=== PATIENT | male | born 1965 | race Caucasian/White ===

== ENCOUNTER 2017-11-16 09:36 | Observation (INO) | payer SELFPAY ==
[2017-11-16] MEDS ORDERED: NA CHLORIDE 0.9% 1,000 ML ONE ×2 (10:06→15:20)
[2017-11-16 10:33] LABS: Absolute Lymphocytes (CBC) 0.5 K/uL (0.7-4.9); Absolute Monocytes 0.9 K/uL (0.1-1.3); Absolute Neutrophil 10.2 K/uL (1.8-8.0); Basophils % 0.1 % (0-1.3); Eosinophils % 0.2 % (0-4.4); Hematocrit 38.6 % (39.6-49.0); MCH 30.4 pg (27.0-35.0); MCV 91.7 fL (80-100); MPV 9.1 fL (7.6-11.3); Monocytes % 7.6 % (3.3-12.3); RBC Red Blood Cell Count 4.21 M/uL (4.33-5.43)
[2017-11-16 10:51] LABS: Potassium 3.7 mEq/L (3.6-5.0)
[2017-11-16 10:59] LABS: Albumin 3.8 g/dL (3.2-5.5); Bilirubin Total 1.1 mg/dL (0.3-1.2); Protein, Total 6.6 g/dL (6.0-8.3)
[2017-11-16 11:01] LABS: Blood Morphology Comment NOT SEEN (NOT SEEN); Platelet Estimate ADEQ; Urine White Blood Cell Casts OK
[2017-11-16 11:04] LABS: Protime INR 1.22
--- NOTE | 2017-11-16 11:36 | RAD REPORT ---
EXAM DESCRIPTION: RAD - Chest Single View - 11/16/2017 10:59 am CLINICAL HISTORY: Syncope, possible heat exhaustion COMPARISON: None. TECHNIQUE: AP portable chest image was obtained 1048 hours . FINDINGS: Lungs are clear. Heart and vasculature are normal. No measurable pleural effusion and no p neumothorax. No gross bony abnormality seen. No acute aortic findings suspected. IMPRESSION: No acute cardiopulmonary process.
--- NOTE | 2017-11-16 12:19 | RAD REPORT ---
EXAM DESCRIPTION: CT - Abdomen Pelvis W Contrast - 11/16/2017 11:46 am CLINICAL HISTORY: Headache, hypertension, tachycardia, possible pheochromocytoma, abnormal liver fun ction COMPARISON: None. TECHNIQUE: Biphasic, helical CT imaging of the abdomen and pelvis was performed following 100 ml non -ionic IV contrast. Oral contrast was given. All CT scans are performed using dose optimization technique as appropriate and may include automated exposure control or mA/KV adjustment according to patient size. FINDINGS: Numerous small noncalcified pulmonary nodules present in the lung bases. No pneumothorax, pleural effusion or pleural based mass. No pericardial thickening or effusion. Liver size is normal. There are multiple 12 mm or less oval and round low-density masses. These are p robably cysts but not fully characterized. No splenomegaly or focal splenic finding. No acute pancrea tic process. Gallbladder and biliary tree are also without suspicious finding. Symmetric renal function is seen with no hydronephrosis or suspicious renal mass. No pyelonephritis o r acute renal parenchymal process. No obstructing calculi. No urinary bladder abnormality. Prostate g land and seminal vesicles within normal range. Both adrenal glands are well visualized. No mass lesions seen. No gastric dilatation or wall thickening. No dilated large or small bowel loops. Moderate stool volum e present in the normal size colon. No free air, free fluid or inflammatory stranding. No hernia, mass or bulky lymphadenopathy. No suspicious bony findings. IMPRESSION: No adrenal abnormalities. No lymphadenopathy. No finding for pheochromocytoma. Multiple 12 mm or less round low-density masses are present in the liver. These are probably cysts bu t no comparison available to establish stability. Cystic metastatic disease would be unlikely without a supporting history. Patient has several small pulmonary nodules. Fall chest is not characterized on this study. Noncalci fied granulomas and metastatic disease can have this appearance.
[2017-11-16 14:28] LABS: Urine Blood TRACE (NEG); Urine Glucose NEGATIVE (NEG); Urine Protein TRACE (NEG); Urine Specific Gravity 1.015 (1.005-1.030); Urine pH 6.5 (5.0-7.0)
[2017-11-16] MEDS ORDERED: ACETAMINOPHEN 325 MG TABLET ONE (15:34)
--- NOTE | 2017-11-16 18:54 | ER ---
Nurse's Notes [facility] Name: Jonathon Croft Age: 52 yrs Sex: Male : 1965 Arrival Date: 11/16/2017 Time: 09:40 Bed 8 Private MD: None, None Diagnosis: Syncope. Presentation: 11/16 09:54 Presenting complaint: Patient states: got over heated while working outside on iw and Friday, he has been feeling weak since then, this morning he had an episode of vomiting, was kneeling on ground and thinks he may have passed out, states he woke up on the floor. Transition of care: patient was not received from another setting of care. 09:54 Method Of Arrival: Wheelchair iw 09:56 Onset of symptoms was November 16, 2017. Risk Assessment: Do you want to hurt yourself or iw someone else? Patient reports no desire to harm self or others. Initial Sepsis Screen: Does the patient meet any 2 criteria? No. Patient's initial sepsis screen is negative. Does the patient have a suspected source of infection? No. Patient's initial sepsis screen is negative. Care prior to arrival: None. 09:56 Acuity: SANDRA 3 iw Historical: - Allergies: 09:58 NKA; iw - PMHx: 09:58 Hyperlipidemia; iw - Immunization history:: Adult Immunizations unknown. - Ebola Screening: : Patient negative for fever greater than or equal to 101.5 degrees Fahrenheit, and additional compatible Ebola Virus Disease symptoms Patient denies exposure to infectious person Patient denies travel to an Ebola-affected area in the 21 days before illness onset No symptoms or risks identified at this time. - Social history:: Smoking status: Patient/guardian denies using tobacco, but has a distant history of tobacco abuse. Screenin:14 Abuse screen: Denies threats or abuse. Denies injuries from another. Nutritional jl7 screening: No deficits noted. Tuberculosis screening: No symptoms or risk factors identified. Fall Risk IV access (20 points). Total Hendrickson Fall Scale indicates No Risk (0-24 pts). Assessment: 09:55 General: Appears in no apparent distress. uncomfortable, Behavior is calm, cooperative, jl7 appropriate for age. Pain: Complains of pain in headache, behind the eyes Quality of pain is described as pressure, Pain began 2-3 days ago. Is continuous. Neuro: Level of Consciousness is awake, alert, obeys commands, Oriented to person, place, time, situation. Cardiovascular: Heart tones S1 S2 present Patient's skin is warm and dry. Respiratory: Airway is patent Respiratory effort is even, unlabored, Respiratory pattern is regular, symmetrical, Breath sounds are clear bilaterally. Denies shortness of breath. GI: Reports nausea, vomiting, since this morning. : No signs and/or symptoms were reported regarding the genitourinary system. EENT: No signs and/or symptoms were reported regarding the EENT system. Derm: Skin is pink, warm \T\ dry. Musculoskeletal: No signs and/or symptoms reported regarding the musculoskeletal system. 11:00 Reassessment: No changes from previously documented assessment. Patient and/or family jl7 updated on plan of care and expected duration. Pain level reassessed. Patient is alert, oriented x 3, equal unlabored respirations, skin warm/dry/pink. 12:00 Reassessment: Patient and/or family updated on plan of care and expected duration. Pain jl7 level reassessed. Patient is alert, oriented x 3, equal unlabored respirations, skin warm/dry/pink. 13:00 Reassessment: No changes from previously documented assessment. Patient and/or family jl7 updated on plan of care and expected duration. Pain level reassessed. Patient is alert, oriented x 3, equal unlabored respirations, skin warm/dry/pink. 14:00 Reassessment: Patient and/or family updated on plan of care and expected duration. Pain jl7 level reassessed. Patient is alert, oriented x 3, equal unlabored respirations, skin warm/dry/pink. 15:00 Reassessment: Pt request something for his ODELL, provider notified, see MAR for orders. jl7 16:00 Reassessment: Pt laying in bed with eyes closed, respirations even and unlabored, no jl7 signs of distress noted at this time. 17:00 Reassessment: Reassessment: Pt reports continued headache, the medication did not help jl7 at all. Provider notified, no new orders received at this time. 17:40 Reassessment: Ambulated pt approximately 150 ft, steady gate, Pulse and oxygen remain jl7 stable. 18:00 Reassessment: Sujata Adrian NP notified of continued ODELL. DUSTY Adrian to bedside. jl7 18:36 Reassessment: pt to CT. jl7 20:09 Reassessment: Patient appears in no apparent distress at this time. pt lying flat s/p ak1 LP. 21:15 Reassessment: pt ambulated to restroom with hospitalist. ak1 Vital Signs: 09:57 BP 117 / 77; Pulse 77; Resp 16 S; Temp 98.2; Pulse Ox 97% on R/A; iw 10:11 BP 119 / 76 Supine; Pulse 73; Pulse Ox 97% ; jl7 10:13 BP 118 / 81 Sitting; Pulse 79; Pulse Ox 98% ; jl7 10:14 BP 108 / 74 Standing; Pulse 81; Resp 16; Pulse Ox 98% ; jl7 11:00 BP 132 / 84; Pulse 80; Resp 18; Pulse Ox 96% ; ae1 12:24 BP 126 / 71; Pulse 87; Resp 16; Pulse Ox 96% ; jl7 13:07 BP 109 / 71; Pulse 80; Resp 29; Pulse Ox 95% on R/A; ae1 14:41 BP 117 / 74; Pulse 74; Resp 18; Pulse Ox 96% on R/A; ae1 15:39 BP 120 / 72; Pulse 83; Resp 18; Pulse Ox 98% ; jl7 16:30 BP 120 / 68; Pulse 77; Resp 18; Pulse Ox 96% ; jl7 17:00 BP 111 / 66; Pulse 77; Resp 14; Pulse Ox 95% ; jl7 17:30 BP 98 / 65; Pulse 72; Resp 16; Pulse Ox 94% ; jl7 17:43 BP 104 / 64; Pulse 70; Resp 16; Pulse Ox 97% ; jl7 18:00 BP 109 / 69; Pulse 72; Resp 14; Temp 99.5; Pulse Ox 97% ; jl7 19:05 BP 111 / 75; Pulse 72; Resp 16; Temp 100.2; Pulse Ox 96% ; jl7 20:11 BP 111 / 74; Pulse 76; Resp 16; Temp 98.8(O); Pulse Ox 96% on R/A; ak1 20:37 BP 108 / 64; Pulse 69; Resp 16; Temp 98.8(O); Pulse Ox 96% on R/A; ak1 ED Course: 09:40 Patient arrived in ED. mr 09:40 None, None is Private Physician. mr 09:49 Dominick Omer MD is Attending Physician. ps1 09:56 Triage completed. iw 09:57 Edward Curtis, GITA is Primary Nurse. jl7 10:14 Initial lab(s) drawn, by ED staff, sent to lab. jl7 10:17 Inserted saline lock: 18 gauge in right forearm, using aseptic technique. Blood ae1 collected. 10:20 Attending Physician role handed off by Dominick Omer MD ma2 10:20 Yina Vallejo MD is Attending Physician. ma2 10:23 Dominick Omer MD is Attending Physician. ma2 10:27 EKG done, by ED staff, reviewed by Dominick Omer MD. jl7 10:27 Patient has correct armband on for positive identification. Placed in gown. Bed in low jl7 position. Call light in reach. bus monitor on. Pulse ox on. NIBP on. 10:27 Arm band placed on right wrist. jl7 10:59 XRAY Chest (1 view) In Process Unspecified. EDMS 11:45 CT completed. Patient tolerated procedure well. Patient moved back from CT. cw1 11:46 CT Abd/Pelvis - W/Contrast In Process Unspecified. EDMS 15:30 Repeat lab(s) drawn. by me, sent to lab. jl7 18:[address] via stretcher. cw1 18:36 Consent for a lumbar puncture explained by staff, explained by physician, signed by jl7 patient. 18:39 Ct Stroke Brain Wo Cont In Process Unspecified. EDMS 18:53 Yina Oviedo MD is Hospitalizing Provider. ps1 19:00 Assist provider with lumbar puncture: Set up LP tray. Performed by Sujata Adrian jl7 RECORD MAKER-C CSF is clear. Puncture site dressed with band aid, Procedure was successful. Patient tolerated well. 19:17 Misc. Lab Test Sent. ak1 20:11 Patient admitted, IV remains in place. ak1 Administered Medications: 10:08 Drug: NS 0.9% 1000 ml Route: IV; Rate: 1 bolus; Site: right forearm; ae1 21:36 Follow up: IV Status: Completed infusion ak1 15:30 Drug: NS 0.9% 1000 ml Route: IV; Rate: 1 bolus; Site: right forearm; jl7 18:36 Follow up: IV Status: Completed infusion jl7 15:36 Drug: Tylenol 650 mg Route: PO; jl7 17:00 Follow up: Response: No adverse reaction; Pain is unchanged, physician notified jl7 19:16 Drug: Tylenol 1000 mg Route: PO; ak1 20:39 Follow up: Response: No adverse reaction ak1 19:51 Drug: NS 0.9% 1000 ml Route: IV; Rate: 1 bolus; Site: right antecubital; ea 21:36 Follow up: IV Status: Completed infusion ak1 Outcome: 18:53 Decision to Hospitalize by Provider. ps1 20:10 Condition: stable ak1 20:10 Instructed on the need for admit. 21:45 Admitted to Tele accompanied by tech, via wheelchair, room 205, with chart, Report ak1 called to Rahat PELAYO 21:54 Patient left the ED. ak1 Signatures: Dispatcher [employer] EDMS Nikki Duarte Irene, RN RN iw Woodley, Crystal cw1 Altagracia Stubbs RN RN ak1 Steven Vick RN RN ae1 Edward Curtis RN RN jl7 Dede Zhang RN RN ea Singer, Phillip, MD MD ps1 Yina Vallejo MD MD ma2
--- NOTE | 2017-11-16 18:54 | EDPHYS ---
Physician Documentation [facility] Name: Jonathon Croft Age: 52 yrs Sex: Male : 1965 Arrival Date: 11/16/2017 Time: 09:40 Bed 8 Private MD: None, None ED Physician Dominick Omer HPI: 11/16 10:02 This 52 yrs old Male presents to ER via Wheelchair with complaints of Passed ps1 Out Prior To Arrival, Weakness, Dizziness, Headache. 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 He thinks that he has been dehydrated and symptoms of heat injury with headache, sweating, chills. This morning he went to the bathroom and was nauseous and felt lightheaded while vomiting. He rolled over and laid on the ground and he felt like he may have had a syncopal event. Additionally he states that over the last couple of days he has had intermittent chest discomfort. Lasting an unknown amount of time. Described as chest pressure. 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 . Historical: - Allergies: 09:58 NKA; iw - PMHx: :58 Hyperlipidemia; iw - Immunization history:: Adult Immunizations unknown. - Ebola Screening: : Patient negative for fever greater than or equal to 101.5 degrees Fahrenheit, and additional compatible Ebola Virus Disease symptoms Patient denies exposure to infectious person Patient denies travel to an Ebola-affected area in the 21 days before illness onset No symptoms or risks identified at this time. - Social history:: Smoking status: Patient/guardian denies using tobacco, but has a distant history of tobacco abuse. ROS: 10:02 Eyes: Negative for injury, pain, redness, and discharge, Neck: Negative for injury, ps1 pain, and swelling. 10:02 Respiratory: Negative for shortness of breath, cough, wheezing, and pleuritic chest pain. 10:02 Back: Negative for injury and pain. 10:02 MS/Extremity: Negative for injury and deformity, Skin: Negative for injury, rash, and discoloration. 10:02 Constitutional: Positive for chills, fatigue, fever. 10:02 Cardiovascular: Positive for chest pain. 10:02 Abdomen/GI: Positive for nausea and vomiting. 10:02 : Positive for dark urine. 10:02 Neuro: Positive for near syncope. Exam: 10:02 Constitutional: This is a well developed, well nourished patient who is awake, alert, ps1 and in no acute distress. Head/Face: Normocephalic, atraumatic. Eyes: Pupils equal round and reactive to light, extra-ocular motions intact. Lids and lashes normal. Conjunctiva and sclera are non-icteric and not injected. Neck: Trachea midline, no thyromegaly or masses palpated, and no cervical lymphadenopathy. Supple, full range of motion without nuchal rigidity, or vertebral point tenderness. No Meningismus. Chest/axilla: Normal chest wall appearance and motion. Nontender with no deformity. No lesions are appreciated. Cardiovascular: Regular rate and rhythm. No gallops, murmurs, or rubs. Normal PMI, no JVD. No pulse deficits. Respiratory: Lungs have equal breath sounds bilaterally, clear to auscultation and percussion. No rales, rhonchi or wheezes noted. No increased work of breathing, no retractions or nasal flaring. Abdomen/GI: Soft, non-tender, with normal bowel sounds. No distension or tympany. No guarding or rebound. No evidence of tenderness throughout. Skin: Warm, dry with normal turgor. Normal color with no rashes, no lesions, and no evidence of cellulitis. MS/ Extremity: Pulses equal, no cyanosis. Neurovascular intact. Full, normal range of motion. Neuro: Awake and alert, GCS 15, oriented to person, place, time, and situation. Cranial nerves II-XII grossly intact. Sensory grossly intact. Vital Signs: 09:57 BP 117 / 77; Pulse 77; Resp 16 S; Temp 98.2; Pulse Ox 97% on R/A; iw 10:11 BP 119 / 76 Supine; Pulse 73; Pulse Ox 97% ; jl7 10:13 BP 118 / 81 Sitting; Pulse 79; Pulse Ox 98% ; jl7 10:14 BP 108 / 74 Standing; Pulse 81; Resp 16; Pulse Ox 98% ; jl7 11:00 BP 132 / 84; Pulse 80; Resp 18; Pulse Ox 96% ; ae1 12:24 BP 126 / 71; Pulse 87; Resp 16; Pulse Ox 96% ; jl7 13:07 BP 109 / 71; Pulse 80; Resp 29; Pulse Ox 95% on R/A; ae1 14:41 BP 117 / 74; Pulse 74; Resp 18; Pulse Ox 96% on R/A; ae1 15:39 BP 120 / 72; Pulse 83; Resp 18; Pulse Ox 98% ; jl7 16:30 BP 120 / 68; Pulse 77; Resp 18; Pulse Ox 96% ; jl7 17:00 BP 111 / 66; Pulse 77; Resp 14; Pulse Ox 95% ; jl7 17:30 BP 98 / 65; Pulse 72; Resp 16; Pulse Ox 94% ; jl7 17:43 BP 104 / 64; Pulse 70; Resp 16; Pulse Ox 97% ; jl7 18:00 BP 109 / 69; Pulse 72; Resp 14; Temp 99.5; Pulse Ox 97% ; jl7 19:05 BP 111 / 75; Pulse 72; Resp 16; Temp 100.2; Pulse Ox 96% ; jl7 20:11 BP 111 / 74; Pulse 76; Resp 16; Temp 98.8(O); Pulse Ox 96% on R/A; ak1 20:37 BP 108 / 64; Pulse 69; Resp 16; Temp 98.8(O); Pulse Ox 96% on R/A; ak1 MDM: 10:10 Patient medically screened. ps1 18:48 Data reviewed: vital signs, nurses notes, lab test result(s), EKG, radiologic studies, ps1 CT scan, plain films. ED course: patient with multiple episodes of vomiting and lightheadedness. Plan for admission for persistent symptoms after rehydration. Patient has had contrast today and inpatient workup consideration for LP and CTA for vertebral artery dysfunction. . 11/16 10:02 Order name: BNP; Complete Time: 11: ps1 11/16 10:02 Order name: CBC with Diff; Complete Time: 11: ps1 11/16 10:02 Order name: CPK; Complete Time: 11: ps1 11/16 10:02 Order name: Magnesium; Complete Time: 11: ps1 11/16 10:02 Order name: PT-INR; Complete Time: 11: ps1 11/16 10:02 Order name: Ptt, Activated; Complete Time: 11: ps1 11/16 10:02 Order name: Troponin (emerg Dept Use Only); Complete Time: 11: ps1 11/16 10:02 Order name: CMP; Complete Time: 11: ps1 11/16 10:02 Order name: Lipid Profile; Complete Time: 11:00 ps1 11/16 10:39 Order name: CBC Smear Scan; Complete Time: 11:02 EDUT 11/16 13:14 Order name: Urine Dipstick--Ancillary (enter results); Complete Time: 14:29 bd 11/16 15:18 Order name: Troponin (emerg Dept Use Only); Complete Time: 16:08 ps1 11/16 17:50 Order name: Flu; Complete Time: 18:16 em 11/16 19:10 Order name: CSF Bacterial Antigens (tube 1); Complete Time: 20:40 snw 11/16 10:02 Order name: XRAY Chest (1 view); Complete Time: 11:37 ps1 11/16 11:12 Order name: CT Abd/Pelvis - W/Contrast; Complete Time: 12:31 ps1 11/16 18:28 Order name: Ct Stroke Brain Wo Cont; Complete Time: 19:04 EDUT 11/16 19:10 Order name: Csf Culture [facility] 11/16 19:10 Order name: Fluid Cell Count,Body; Complete Time: 20:58 snw 11/16 19:10 Order name: Spinal Fluid Profile; Complete Time: 20:58 snw 11/16 19:10 Order name: Misc. Lab Test; Complete Time: 20:40 w 11/16 21:09 Order name: CBC with Automated Diff [facility] 11/16 21:09 Order name: CBC with Automated Diff [facility] 11/16 21:09 Order name: Comprehensive Metabolic Panel [facility] 11/16 21:09 Order name: Comprehensive Metabolic Panel [facility] 11/16 21:09 Order name: Cortisol [facility] 11/16 21:09 Order name: T4 Free [facility] 11/16 21:09 Order name: Thyroid Stimulating Hormone [facility] 11/16 10:02 Order name: EKG; Complete Time: 10:03 [facility] 11/16 10:02 Order name: Cardiac monitoring; Complete Time: 10:14 [facility] 11/16 10:02 Order name: EKG - Nurse/Tech; Complete Time: 10:14 [facility] 11/16 10:02 Order name: IV Saline Lock; Complete Time: 10:17 ps1 11/16 10:02 Order name: Labs collected and sent; Complete Time: 10:26 [facility] 11/16 10:02 Order name: O2 Per Protocol; Complete Time: 10:14 11/16 10:02 Order name: O2 Sat Monitoring; Complete Time: 10:14 11/16 10:02 Order name: Urine Dipstick-Ancillary (obtain specimen); Complete Time: 13:18 [facility] 11/16 10:02 Order name: Orthostatics; Complete Time: 10:14 [facility] 11/16 10:02 Order name: EKG - Nurse/Tech; Complete Time: 10:14 [facility] 11/16 16:15 Order name: Diet Regular; Complete Time: 16:15 11/16 18:21 Order name: LP Setup; Complete Time: 18:35 11/16 18:21 Order name: LP Consents; Complete Time: 18:35 11/16 19:10 Order name: Lumbar Puncture Consent; Complete Time: 19:17 [facility] 11/16 19:10 Order name: Lumbar Puncture Setup; Complete Time: 19:17 [facility] 11/16 21:09 Order name: CONS Pharmacy Consult EDMS Administered Medications: 10:08 Drug: NS 0.9% 1000 ml Route: IV; Rate: 1 bolus; Site: right forearm; ae1 21:36 Follow up: IV Status: Completed infusion ak1 15:30 Drug: NS 0.9% 1000 ml Route: IV; Rate: 1 bolus; Site: right forearm; jl7 18:36 Follow up: IV Status: Completed infusion jl7 15:36 Drug: Tylenol 650 mg Route: PO; jl7 17:00 Follow up: Response: No adverse reaction; Pain is unchanged, physician notified jl7 19:16 Drug: Tylenol 1000 mg Route: PO; ak1 20:39 Follow up: Response: No adverse reaction ak1 19:51 Drug: NS 0.9% 1000 ml Route: IV; Rate: 1 bolus; Site: right antecubital; ea 21:36 Follow up: IV Status: Completed infusion ak1 Disposition: 11/16/17 18:53 Hospitalization ordered by Yina Oviedo for Observation. Preliminary diagnosis is Syncope. . - Bed requested for Telemetry/MedSurg (observation). - Status is Observation. ak1 - Condition is Fair. - Problem is new. - Symptoms are unchanged. UTI on Admission? 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 He thinks that he has been dehydrated and symptoms of heat injury with headache, sweating, chills. This morning he went to the bathroom and was nauseous and felt lightheaded while vomiting. He rolled over and laid on the ground and he felt like he may have had a syncopal event. Additionally he states that over the last couple of days he has had intermittent chest discomfort. Lasting an unknown amount of time. Described as chest pressure. . ps1 19:35 18:53 Hospitalization Ordered by Yina Oviedo MD for Observation. Preliminary dw diagnosis is Syncope. . Bed requested for Telemetry/MedSurg (observation). Status is Observation. Condition is Fair. Problem is new. Symptoms are unchanged. UTI on Admission? No. ps1 21:54 19:35 11/16/2017 18:53 Hospitalization Ordered by Yina Oviedo MD for Observation. ak1 Preliminary diagnosis is Syncope. . Bed requested for Telemetry/MedSurg (observation). Status is Observation. Condition is Fair. Problem is new. Symptoms are unchanged. UTI on Admission? No. dw
--- NOTE | 2017-11-16 18:58 | RAD REPORT ---
EXAM DESCRIPTION: CT - Ct Stroke Brain Wo Cont - 11/16/2017 6:39 pm CLINICAL HISTORY: Altered mental status, heat stroke symptoms CLINICAL HISTORY: None. TECHNIQUE: Axial 5 millimeter thick images of the head were obtained without IV contrast. All CT scans are performed using dose optimization technique as appropriate and may include automated exposure control or mA/KV adjustment according to patient size. FINDINGS: No intracranial hemorrhage, mass, or cerebral edema. No acute infarction identifiable. No extra-axial fluid collections. Godoy matter-white matter differentiation is preserved. Visualized portions of the mastoid air cells, paranasal sinuses, and orbits are unremarkable. IMPRESSION: No CT evidence of acute intracranial process.
[2017-11-16] MEDS ORDERED: ACETAMINOPHEN 500 MG TAB ONE (19:12)
[2017-11-16 19:40] LABS: CSF Glucose 62 mg/dl (40-70)
--- NOTE | 2017-11-16 19:42 | P.HP ---
Certification for Inpatient Patient admitted to: Observation With expected LOS: <2 Midnights Patient will require the following post-hospital care: None Practitioner: I am a practitioner with admitting privileges, knowledge of patient current condition, hospital course, and medical plan of care. Services: Services provided to patient in accordance with Admission requirements found in Title 42 Section 412.3 of the Code of Federal Regulations Patient History Date of Service: 11/16/17 Primary Care Provider: No PCP Reason for admission: Generalized weakness, syncope History of Present Illness: Pt arrived to the ED today after being unable to complete his ADLs. Pt was worked up for syncope in the ED. Troponin negative x 2. NSR on EKG. Pt denies chest pain but does complain of "hot flashes", inability to tolerate heated environments, extreme fatigue, headache behind his eyes and pain at the base of the neck. Upon my exam in the ED pt states that he got overheated on in an unairconditioned work space. He felt supremely fatigued, sat on his bottom to reset, and awoke on his back on the floor. Pt cannot say if he was sweating before or when he awoke. Pt states he then went home. Friday pt attempted to finish his work and was unable. Went home and "crawled in the door", pt states he awoke some time later on his back and had been incontinent of urine. Went to the shower and sat under the spray and lay on the cold tile. Pt states yesterday he had similar s/s x 2 except this time he vomited x 1. CT of head ordered and reported as negative. LP performed in right lateral position per sterile technique. Pt tolerated well. CSF with initially brisk flow and then nothing. Tube one slightly xanthochromic. Spinal needle manipulated slightly and fluid resumed with tinge of blood. 4 tubes collected and walked to lab Allergies No Known Drug Allergies Allergy (Verified 07/03/14 11:20) Unknown Home medications list reviewed: Yes Home Medications: Amox/Clavulanate [Augmentin 875-125 Tab] 1 each PO BID #20 tab 07/04/14 - Past Medical/Surgical History Has patient received pneumonia vaccine in the past: No Diabetic: No Past Medical History: Patient denies medical history Past Surgical History: Patient denies surgical history - Family History Mother -: Heart disease, Cancer - Social History Smoking Status: Former smoker Alcohol use: No CD- Drugs: No Caffeine use: Yes Place of Residence: Home Review of Systems General: Weakness, Malaise Eyes: Unremarkable ENT: Unremarkable Respiratory: Unremarkable Cardiovascular: Light Headedness Gastrointestinal: Nausea, Vomiting Genitourinary: Unremarkable Musculoskeletal: As per HPI Integumentary: Unremarkable Neurological: Weakness Lymphatics: Unremarkable Physical Examination - Vital Signs Temperature: 100.2 F Blood Pressure: 111/75 Pulse: 72 Respirations: 16 Pulse Ox (%): 96 - Physical Exam General: Alert HEENT: Atraumatic Neck: Supple, Other (posterior neck discomfort) Respiratory: Clear to auscultation bilaterally Cardiovascular: Normal pulses, Regular rate/rhythm, Normal S1 S2 Capillary refill: <2 Seconds Gastrointestinal: Normal bowel sounds Musculoskeletal: No clubbing, No swelling Integumentary: No rashes Neurological: Normal gait, Normal speech, Normal reflexes 2+, Normal affect Lymphatics: No axilla or inguinal lymphadenopathy External genitalia: Deferred Rectal: Deferred - Studies Laboratory Data (last 24 hrs) 11/16/17 10:09: PT 14.4 H, INR 1.22, APTT 26.5 11/16/17 10:09: Sodium 132 L, Potassium 3.7, BUN 13, Creatinine 0.97, Glucose 116, Magnesium 2.0, Total Bilirubin 1.1, AST 230 H, ALT 159 H, Alkaline Phosphatase 81, Triglycerides 50, Cholesterol 153, HDL Cholesterol 63, Cholesterol/HDL Ratio 2.43 11/16/17 10:09: WBC 11.6 H, Hgb 12.8 L, Hct 38.6 L, Plt Count 210 11/16/17 10:09: B-Natriuretic Peptide 46 Microbiology Data (last 24 hrs): 11/16/17 17:50 Nasopharnyx Influenza Type A Antigen Screen - Final 11/16/17 17:50 Nasopharnyx Influenza Type B Antigen Screen - Final Assessment and Plan - Problems (Diagnosis) (1) Weakness Onset Date: ~11/13/17 Current Visit: Yes Status: Acute Plan: Possible heat stroke on . CT negative. LP performed. If no xanthochromia or infectious source. May need aggrenox for subacute CVA findings. Plan CTA of brain and neck tomorrow as IV contrast was given at 1155 in ED today (2) Syncope and collapse Onset Date: ~11/13/17 Current Visit: Yes Status: Acute Plan: Continued assessment of vs, orthostatic measurements, IVF (3) Headache Onset Date: ~11/16/17 Current Visit: Yes Status: Acute Plan: Await LP results and CTA brain and neck tomorrow Qualifiers: Headache type: tension-type (4) Headache around the eyes Onset Date: ~11/16/17 Current Visit: Yes Status: Acute Plan: Evaluate fluid volume status, await results of LP, CT. Tylenol as needed. Pt declines other medications - Advance Directives Does patient have a Living Will: No Does patient have a Durable POA for Healthcare: No - Code Status/Comfort Care Code Status Assessed: Yes Code Status: Full Code Time Spent Managing Pts Care (In Minutes): 60
[2017-11-16 20:45] LABS: Body Fluid Source CSF; Color of fluid Pink (COLORLESS)
[2017-11-16 20:46] LABS: Appearance SLT. TURBID (CLEAR); Body Fluid WBC 2 /mm^3
[2017-11-16 20:48] LABS: Body Fluid Source CSF; Color of fluid Colorless (COLORLESS); Fluid Total Volume 4 ml
[2017-11-16 20:49] LABS: Appearance CLEAR (CLEAR); Body Fluid WBC 3 /mm^3
[2017-11-16] MEDS ORDERED: MORPHINE 2 MG/ML SYR IV PRN (21:06)
[2017-11-16] MEDS ORDERED: ONDANSETRON 4 MG/2 ML VIAL IV PRN (21:06)
[2017-11-16 22:13] VITALS: O2SAT 96
[2017-11-16] MEDS: NA CHLORIDE 0.9% 1,000 ML IV SCH (22:16)
[2017-11-17 05:13] LABS: Absolute Lymphocytes (CBC) 0.6 K/uL (0.7-4.9); Absolute Monocytes 0.9 K/uL (0.1-1.3); Absolute Neutrophil 5.7 K/uL (1.8-8.0); Basophils % 0.1 % (0-1.3); Eosinophils % 2.3 % (0-4.4); Lymphocytes % 8.1 % (15.3-44.8); MCH 31.1 pg (27.0-35.0); MCV 91.2 fL (80-100); MPV 9.2 fL (7.6-11.3); Monocytes % 11.8 % (3.3-12.3); RBC Red Blood Cell Count 4.06 M/uL (4.33-5.43)
[2017-11-17] MEDS: NA CHLORIDE 0.9% 1,000 ML IV SCH ×2 (05:29→16:23)
[2017-11-17 05:36] LABS: Bilirubin Total 0.8 mg/dL (0.3-1.2); Potassium 3.9 mEq/L (3.6-5.0); Protein, Total 5.3 g/dL (6.0-8.3)
[2017-11-17 06:08] LABS: Thyroid Stimulating Hormone 0.73 uIU/mL (0.34-5.60)
[2017-11-17] MEDS: ACETAMINOPHEN 500 MG TAB PO PRN ×2 (06:33→16:22)
--- NOTE | 2017-11-17 07:50 | P.PN ---
Subjective Date of Service: 11/16/17 Chart reviewed. Spoke with nurse practitioner. The plan wsto go ahead and admit patient. We will aggressively hydrate patient. Patient still having headache and generalized weakness. Patient has been feeling confused & having generalized muscle aches. Before this he was in his normal state of health and was able to work extensively. He has had a significant change in condition. He is barely able to get around without feeling like he is going to collapse. Review of Systems 10-point ROS is otherwise unremarkable Physical Examination - Vital Signs Temperature: 98.0 F Blood Pressure: 111/63 Pulse: 87 Respirations: 18 Pulse Ox (%): 97 - Physical Exam General: Alert, In no apparent distress, Oriented x3 HEENT: Atraumatic, PERRLA, EOMI Neck: Supple, JVD not distended Respiratory: Clear to auscultation bilaterally, Normal air movement Cardiovascular: Regular rate/rhythm, Normal S1 S2 Gastrointestinal: Normal bowel sounds, Soft and benign, Non-distended, No tenderness Musculoskeletal: No clubbing, No swelling, No tenderness - Studies Laboratory Data (last 24 hrs) 11/16/17 10:09: PT 14.4 H, INR 1.22, APTT 26.5 11/16/17 10:09: Sodium 132 L, Potassium 3.7, BUN 13, Creatinine 0.97, Glucose 116, Magnesium 2.0, Total Bilirubin 1.1, AST 230 H, ALT 159 H, Alkaline Phosphatase 81, Triglycerides 50, Cholesterol 153, HDL Cholesterol 63, Cholesterol/HDL Ratio 2.43 11/16/17 10:09: WBC 11.6 H, Hgb 12.8 L, Hct 38.6 L, Plt Count 210 11/16/17 10:09: B-Natriuretic Peptide 46 Microbiology Data (last 24 hrs): 11/16/17 19:11 Cerebral Spinal Fluid Gram Stain - Final 11/16/17 19:11 Cerebral Spinal Fluid CSF Bacterial Antigens (Tube 1) - Final 11/16/17 17:50 Nasopharnyx Influenza Type A Antigen Screen - Final 11/16/17 17:50 Nasopharnyx Influenza Type B Antigen Screen - Final Medications List Reviewed: Yes Assessment & Plan - Problems (Diagnosis) (1) Heat stroke Status: Acute (2) Syncope and collapse Onset Date: ~11/13/17 Status: Acute - Plan Plan: 1. Continue with aggressive IV hydration 2. May need further imaging study including MRI of the brain 3. Neuro checks 4. Monitor electrolytes and CPK level 5. Anticipate discharge home in 24-48 hr - Advance Directives Does patient have a Living Will: No Does patient have a Durable POA for Healthcare: No - Code Status/Comfort Care Code Status: Full Code
[2017-11-17 11:21] LABS: Absolute Lymphocytes (CBC) 0.8 K/uL (0.7-4.9); Absolute Monocytes 0.7 K/uL (0.1-1.3); Absolute Neutrophil 5.3 K/uL (1.8-8.0); Basophils % 0.3 % (0-1.3); Eosinophils % 2.2 % (0-4.4); Hematocrit 38.4 % (39.6-49.0); Lymphocytes % 11.4 % (15.3-44.8); MCV 92.2 fL (80-100); Monocytes % 10.3 % (3.3-12.3); RBC Red Blood Cell Count 4.16 M/uL (4.33-5.43)
[2017-11-17 12:28] LABS: Magnesium 2.1 mg/dL (1.8-2.5); Phosphorus 1.8 mg/dL (2.5-4.3); Potassium 3.9 mEq/L (3.6-5.0)
--- NOTE | 2017-11-17 12:47 | EKG ---
Test Date: 2017-11-16 Test Time: 10:04:18 Cold Strip Feeder: HEATHER MEASUREMENT RESULTS: Intervals: Rate: 68 GA: 162 QRSD: 76 QT: 382 QTc: 406 [place]: P: 65 GA: 162 QRS: 34 T: 37 INTERPRETIVE STATEMENTS: Normal sinus rhythm Normal ECG No previous ECG available for comparison Electronically Signed On 11-17-17 12:43:52 CDT by Abdulkadir Grissom
--- NOTE | 2017-11-17 13:02 | PN ---
Date of Progress Note: 11/17/2017 Subjective: The patient is seen and examined. Chart reviewed and case discussed with RN. The patient states that he still feels very weak and gets a headache any time he gets up. He is little bit wobbly on his feet. The patient otherwise states he is feeling better overall. Review of Systems: Negative except as above. Medications: Reviewed. Objective: Vital Signs: Temperature 100, heart rate 68, blood pressure 111/65 , respirations 18, O2 95% on room air. General: Awake, alert, oriented x3, in some mild distress, ill-appearing male, appears older than stated age. CV: S1 and S2. No murmurs. Peripheral pulses present. Respiratory: Clear to auscultation bilaterally. No wheezing. No stridor. No use of accessory muscles. Gastrointestinal: Abdomen is soft, nontender, nondistended. Positive bowel sounds. No guarding or rigidity. Extremities: No clubbing, cyanosis, or edema. Neurologic: Nonfocal. Laboratory Data: Sodium 138, potassium 3.9, chloride 106, CO2 28, BUN 8, creatinine 0.89, glucose 110, calcium 8.2. AST 162, ALT 141, alkaline phosphatase 88. CK level is pending. TSH 0.73, cortisol 17.7. WBC 7.4, hemoglobin and hematocrit of 12.6 and 37, platelets 198, neutrophils 77%. CSF culture pending. CSF bacterial antigens negative. Influenza screen negative. Assessment: A 52-year-old male with: 1. Generalized weakness, likely related to possible heat stroke and elevated CPK levels present. We will continue with PT, IV fluid hydration. 2. Near syncopal episode, likely related to above, improved. Still feels weak. We will continue with PT and IV fluids. Check orthostatic vital signs. 3. Headache. CT of brain was negative. Lumbar puncture was done. Initial workup is negative. Culture is pending. The patient does have some low-grade fevers at 100.2. We will continue to monitor. 4. Gastrointestinal and deep venous thrombosis prophylaxis addressed. 5. Liver cysts Plan: We will continue with current treatment and follow up on cultures. TONEY Voice ID: [id number] Report ID: [id number] [facility]
[2017-11-17] MEDS: Morphine 2 MG/2 ML SYR IV PRN ×2 (17:39→23:50)
[2017-11-18 00:32] VITALS: BMI 22.1
[2017-11-18] MEDS: NA CHLORIDE 0.9% 1,000 ML IV SCH (04:00)
[2017-11-18 05:12] LABS: Absolute Lymphocytes (CBC) 1.1 K/uL (0.7-4.9); Absolute Neutrophil 4.2 K/uL (1.8-8.0); Basophils % 0.2 % (0-1.3); Eosinophils % 3.1 % (0-4.4); Hematocrit 35.4 % (39.6-49.0); Lymphocytes % 17.1 % (15.3-44.8); MCH 31.5 pg (27.0-35.0); MCV 90.8 fL (80-100); MPV 8.9 fL (7.6-11.3); Monocytes % 14.8 % (3.3-12.3); RBC Red Blood Cell Count 3.89 M/uL (4.33-5.43)
[2017-11-18 05:24] LABS: ALT/SGPT 133 IU/L (10-60); AST/SGOT 100 IU/L (10-42); Albumin 2.8 g/dL (3.2-5.5); Alkaline Phosphatase 108 IU/L (42-121); BUN Blood Urea Nitrogen 6 mg/dL (6-20); Bicarbonate 27 mEq/L (21-31); Bilirubin Total 0.4 mg/dL (0.3-1.2); Glucose Level 112 mg/dL (65-120); Potassium 3.9 mEq/L (3.6-5.0); Protein, Total 5.1 g/dL (6.0-8.3); Sodium Level 139 mEq/L (135-145)
--- NOTE | 2017-11-19 03:25 | DS ---
Date of Discharge: 11/18/2017 Admitting Diagnoses: 1.Heat stroke. 2.Syncope and collapse. Discharge Diagnoses: 1.Generalized weakness. 2.Heat stroke. 3.Near syncopal episode. 4.Headache. 5.Elevated liver enzymes. 6.Hepatic cysts. 7.Pulmonary nodules. 8.Normocytic normochromic anemia. Hospital Course: The patient is a 52-year-old male who does not have a family doctor comes in with p ossible syncopal episode, being unable to complete his ADLs. The patient was feeling very weak. His workup revealed elevated white count at 11,000. Lumbar puncture was done in the ER, which was clear . Bacterial antigens were negative. CSF cultures; no growth to date. Influenza screen was also neg ative. He was found to have elevated liver enzymes, which trended down. No history of significant a lcohol use. CT scan of the brain was done which was negative for any acute intracranial process. Ab domen CT was also done which did show multiple 12 mm or less round low-density masses in the liver, p robably cysts, and also found to have several small pulmonary nodules which may represent granulomas. The patient's condition improved. His headache resolved. His orthostatic vital signs were checked which were positive. He was instructed to be cautious while standing up to weight in a sitting posi tion before immediately getting up to avoid falling and having a near syncopal episode. The patient otherwise did well with IV fluids. His headache resolved. Blood pressure remained stable. He did h ave some low-grade fever, however, no source of infection was found. Neurology was unavailable. The patient is doing well. He was able to ambulate. No further episodes of near syncope. No pain. Vi sebastien signs were stable. He was then discharged home. He understands that he needs to establish care with a family physician in order to workup his liver cysts and pulmonary nodules which are likely abdulaziz ign. He needs to have a repeat CT to assess his cysts and nodules within the next 3-4 months and he needs to have a repeat liver function tests in a couple weeks. The patient was then discharged home. Diet: Heart healthy. Activity: As tolerated. Followup: With GI, Dr. Hall, in 2-4 weeks for liver abnormality. Return to ER for worsening condi tion. Medications: As per medication reconciliation list. Physical Examination: General: Awake, alert, oriented x3. No acute distress. CV: S1, S2. No murmurs. Respiratory: Clear to auscultation bilaterally. No wheezing. Abdomen: Abdomen is soft, nontender, and nondistended. Positive bowel sounds. Extremities: No clubbing, cyanosis, or edema. Neurologic: Nonfocal. /MODMili Voice ID: [id number] Report ID: [id number]
[2017-11-20 13:31] LABS: HBsAG Nonreactive (Nonreactive); Hepatitis A IgM Antibody Nonreactive
[2017-11-24 07:42] VITALS: BP 111/63; TEMP 98
== END 2017-11-18 11:54 | disposition home or self-care (01) ==
LOC: ER 09:36 → 2ND 21:07
PROVIDERS: ADMIT Hospitalist; ATTEND Family Medicine
PROC: 009U3ZX Drainage of Spinal Canal, Percutaneous Approach, Diagnostic (ICD-10-PCS; principal; 2017-11-16)
DX: T67.0XXA Heatstroke and sunstroke, initial encounter (principal); X58.XXXA Exposure to other specified factors, initial encounter; R51 Headache; R74.8 Abnormal levels of other serum enzymes; K76.89 Other specified diseases of liver; R91.8 Other nonspecific abnormal finding of lung field; D64.9 Anemia, unspecified
CPT/HCPCS: 36415; 62270; 70450; 71045; 74177; 80048; 80053; 80061; 80074; 81003; 82533; 82550; 82607; 82945; 83735; 83880; 84100; 84157; 84439; 84443; 84484; 85025; 85610; 85730; 86403; 87070; 87804; 89050; 93005; 96360; 96361; 97163; 99285; G0378; J2270; J7030; Q9967

== ENCOUNTER 2017-11-19 07:32 | Emergency (ER) | payer SELFPAY ==
[2017-11-19 09:05] LABS: BUN Blood Urea Nitrogen 8 mg/dL (6-20); Bicarbonate 28 mEq/L (21-31); Glucose Level 113 mg/dL (65-120); Potassium 3.5 mEq/L (3.6-5.0); Sodium Level 138 mEq/L (135-145)
[2017-11-19 09:06] LABS: Absolute Lymphocytes (CBC) 1.5 K/uL (0.7-4.9); Absolute Monocytes 1.1 K/uL (0.1-1.3); Absolute Neutrophil 4.6 K/uL (1.8-8.0); Basophils % 0.3 % (0-1.3); Eosinophils % 1.6 % (0-4.4); Hematocrit 37.1 % (39.6-49.0); Lymphocytes % 20.4 % (15.3-44.8); MCH 30.5 pg (27.0-35.0); MCV 91.5 fL (80-100); MPV 8.6 fL (7.6-11.3); Monocytes % 14.8 % (3.3-12.3); RBC Red Blood Cell Count 4.06 M/uL (4.33-5.43)
--- NOTE | 2017-11-19 10:49 | RAD REPORT ---
EXAM DESCRIPTION: MRI - Stroke Protocol - 11/19/2017 10:32 am CLINICAL HISTORY: Syncope, stroke-like symptoms, severe headache, weakness and dizziness COMPARISON: CT head November 16 TECHNIQUE: Sagittal T1- weighted images were obtained along with PD/heavily T2- weighted and T2-FLAI R images. Axial DWI and ADC mapping sequences were also obtained. Coronal heavily T2- weighted images were obtained. MRA head imaging performed with source images and 3D reconstruction images reviewed. MRA neck imaging was performed with source and 3D reconstruction imaging reviewed. Post contrast T1 i maging was performed. A 14 ml GD dosage was utilized. FINDINGS: No mass, hemorrhage, edema or shift of midline structures. No acute or subacute infarction changes identifiable. No atrophy changes are present. No chronic ischemic change or other white wayne er abnormality identifiable. Godoy matter- white matter junction is normal. There is a small arachnoid cyst in the anterior aspect of the left middle cranial fossa. This is not a significant finding. No tonsillar ectopia. No sella or supra sella acute finding. Signal voids are seen as a normal finding i n the major intracranial vessels. Mastoid air cells and paranasal sinuses are clear. No globe or orbit abnormality. MRA Head imaging shows no aneurysm or vascular malformation. No significant atherosclerotic disease o r vessel narrowing seen. Basilar artery is minimally tortuous but otherwise unremarkable. Aortic arch is 3 vessel. No great vessel or vertebral artery origins stenosis. Bilateral common carot id arteries are unremarkable. Both internal carotid artery show a pronounced tortuosity midportion on the left and distal on the right. No dissection or stenosis. Left vertebral artery is dominant. IMPRESSION: MRI brain examination shows no infarction or acute intracranial process. No intracranial abnormality seen. MRA imaging shows no aneurysm, dissection or significant vascular finding. Both internal carotid art eries are quite tortuous but otherwise unremarkable.
--- NOTE | 2017-11-19 11:59 | ER ---
Nurse's Notes [facility] Name: Jonathon Croft Age: 52 yrs Sex: Male : 1965 Arrival Date: 11/19/2017 Time: 07:34 Bed 18 Private MD: None, None Diagnosis: Headache;Weakness Presentation: 11/19 07:46 Presenting complaint: Patient states: was recently admitted to hospital for iw dizziness/weakness, headache, passed out, was discharged yesterday but still had a bad headache, was told nothing was wrong, this morning he can't stand without having a really abd headache and nausea, c/o dizziness when moving around. Transition of care: patient was not received from another setting of care. Onset of symptoms was November 19, 2017. Risk Assessment: Do you want to hurt yourself or someone else? Patient reports no desire to harm self or others. Initial Sepsis Screen: Does the patient meet any 2 criteria? No. Patient's initial sepsis screen is negative. Does the patient have a suspected source of infection? No. Patient's initial sepsis screen is negative. Care prior to arrival: None. 07:46 Method Of Arrival: Wheelchair iw 07:46 Acuity: SANDRA 3 iw Triage Assessment: 08:34 Headache History: Denies prior headaches. General: Appears in no apparent distress. em uncomfortable, Behavior is calm, cooperative. Pain: Also complains of nausea, inability to work, inability to perform activities of daily living. Historical: - Allergies: 07:50 NKA; iw - Home Meds: 07:50 None [Active]; iw - PMHx: 07:50 Hyperlipidemia; iw - PSHx: 07:50 None; iw - Immunization history:: Adult Immunizations. - Ebola Screening: : Patient negative for fever greater than or equal to 101.5 degrees Fahrenheit, and additional compatible Ebola Virus Disease symptoms Patient denies exposure to infectious person Patient denies travel to an Ebola-affected area in the 21 days before illness onset No symptoms or risks identified at this time. - Social history:: Smoking status: Patient/guardian denies using tobacco. Screenin:35 Abuse screen: Denies threats or abuse. Nutritional screening: No deficits noted. em Tuberculosis screening: No symptoms or risk factors identified. Fall Risk None identified. Assessment: 08:00 General: Appears in no apparent distress. uncomfortable, Behavior is cooperative, em Reports having the headache when standing, reports dizzy and nauseated, denies pain while lying on bed. Pain: Complains of pain in forehead Pain currently is 0 out of 10 on a pain scale. Quality of pain is described as pressure. Pain: Pain began on Friday. Neuro: Level of Consciousness is awake, alert, obeys commands, Oriented to person, place, time, situation, Laminator Preforms are equal bilaterally Speech is normal, Reports dizziness, headache. Cardiovascular: Capillary refill < 3 seconds Patient's skin is warm and dry. Respiratory: Airway is patent Respiratory effort is even, unlabored, Respiratory pattern is regular, symmetrical. GI: Abdomen is flat. : No signs and/or symptoms were reported regarding the genitourinary system. EENT: No signs and/or symptoms were reported regarding the EENT system. Derm: Skin is intact, Skin is pink, warm \T\ dry. 08:02 Reassessment: Patient appears in no apparent distress at this time. I agree with above iw assessment by Amando Coyle LVN. 08:05 Reassessment: pt is having an animated conversation on his phone at this time. tw2 09:00 Reassessment: Patient appears in no apparent distress at this time. Patient and/or em family updated on plan of care and expected duration. Pain level reassessed. Patient is alert, oriented x 3, equal unlabored respirations, skin warm/dry/pink. Patient denies pain at this time. 09:40 Reassessment: Pt in MRI. em 10:40 Reassessment: Patient appears in no apparent distress at this time. Patient and/or em family updated on plan of care and expected duration. Pain level reassessed. Patient is alert, oriented x 3, equal unlabored respirations, skin warm/dry/pink. 11:30 Reassessment: Patient appears in no apparent distress at this time. Patient and/or em family updated on plan of care and expected duration. Pain level reassessed. Patient is alert, oriented x 3, equal unlabored respirations, skin warm/dry/pink. 12:30 Reassessment: Patient appears in no apparent distress at this time. Patient and/or em family updated on plan of care and expected duration. Pain level reassessed. Patient is alert, oriented x 3, equal unlabored respirations, skin warm/dry/pink. awaiting son to come mushroom picker pt. Vital Signs: 07:50 BP 119 / 84; Pulse 58; Resp 16 S; Temp 98.5(O); Pulse Ox 98% on R/A; Weight 64.86 kg; iw Height 5 ft. 8 in. (172.72 cm); Pain 0/10; 09:00 BP 113 / 71; Pulse 52; Resp 16; Pulse Ox 99% on R/A; Pain 0/10; em 11:09 BP 113 / 67; Pulse 51; Resp 16; Pulse Ox 97% on R/A; em 11:26 BP 103 / 66 LA Supine (auto/reg); Pulse 70 MON; em1 11:28 BP 123 / 93 LA Sitting (auto/reg); Pulse 73 MON; em1 11:30 BP 122 / 93 LA Standing (auto/reg); Pulse 83 MON; em1 12:30 BP 107 / 70; Pulse 55; Resp 18; Pulse Ox 99% on R/A; Pain 0/10; em 07:50 Body Mass Index 21.74 (64.86 kg, 172.72 cm) iw ED Course: 07:34 Patient arrived in ED. mr 07:34 None, None is Private Physician. mr 07:45 Darshan Ackerman MD is Attending Physician. kdr 07:50 Triage completed. iw 07:50 Arm band placed on. iw 08:29 Amando Coyle LVN is Primary Nurse. em 08:35 Patient has correct armband on for positive identification. Bed in low position. Side em rails up X2. 08:36 Inserted saline lock: 20 gauge in right antecubital area, using aseptic technique. em Blood collected. 09:38 Patient moved to [facility] via wheelchair. em2 09:46 Amando Coyle LVN is Primary Nurse. em 10:23 Stroke Protocol In Process Unspecified. EDMS 10:32 Patient moved back from [facility]. lc 11:57 Hermes Cox MD is Referral Physician. kdr 13:36 No provider procedures requiring assistance completed. IV discontinued, intact, iw bleeding controlled, No redness/swelling at site. Pressure dressing applied. Administered Medications: 12:49 Drug: TORadol 30 mg Route: IVP; Site: right antecubital; iw 13:00 Follow up: Response: No adverse reaction em Outcome: 11:58 Discharge ordered by . kdr 13:36 Discharged to home ambulatory. iw 13:36 Condition: good 13:36 Discharge instructions given to patient, Instructed on discharge instructions, follow up and referral plans. medication usage, Demonstrated understanding of instructions, follow-up care, medications, Prescriptions given X 2. 13:38 Patient left the ED. em Signatures: Dispatcher [employer] EDMS Darshan Ackerman MD MD kdr Rivera, Maria mr Etienne, Amando Ohara, PASTEURIZER PASTEURIZER Mikaela Herman, RN RN Gonzalez Early em1 Kirk Roper em2 Jennifer Gutierrez RN RN tw2 Corrections: (The following items were deleted from the chart) 09:48 09:43 Patient moved to [facility] via wheelchair. em2 em2
--- NOTE | 2017-11-19 11:59 | EDPHYS ---
Physician Documentation [facility] Name: Jonathon Croft Age: 52 yrs Sex: Male : 1965 Arrival Date: 11/19/2017 Time: 07:34 Bed 18 Private MD: None, None ED Physician Darshan Ackerman HPI: 11/19 08:36 This 52 yrs old Male presents to ER via Wheelchair with complaints of kdr Headache, Trouble Walking. 08:36 The patient complains of pain to the forehead, right druze, left druze, left side of kdr forehead, left temporal area, right temporal area and right side of forehead. The patient describes the headache as aching, intermittent, a pressure. Onset: The symptoms/episode began/occurred suddenly, 1 week(s) ago. Associated signs and symptoms: Pertinent positives: nausea, syncope Pertinent negatives: there are no associated signs or symptoms. altered mental status, dizziness, fever, neck stiffness, paresthesias, Photophobia rash, sinus congestion, sinus tenderness, vision changes. Severity of symptoms: At its worst the pain was severe, in the emergency department the pain is unchanged, His head hurts primarily when he raises it up above his torso height. Headache History: Denies prior headaches. The symptoms are alleviated by remaining still, and flat. The patient has not experienced similar symptoms in the past. The patient has been recently seen by a physician: The patient has been recently been admitted at [facility], was discharged yesterday. The patient was admitted on Friday for the ODELL and had an LP/CT performed that were both reported to have been negative. The patient was discharged yesterday after the w/u and he still had the ODELL at the time. The ODELL has not changed in character or severity since discharge but persists when he is upright at which time, is is severe. Historical: - Allergies: 07:50 NKA; iw - Home Meds: 07:50 None [Active]; iw - PMHx: 07:50 Hyperlipidemia; iw - PSHx: 07:50 None; iw - Immunization history:: Adult Immunizations. - Ebola Screening: : Patient negative for fever greater than or equal to 101.5 degrees Fahrenheit, and additional compatible Ebola Virus Disease symptoms Patient denies exposure to infectious person Patient denies travel to an Ebola-affected area in the 21 days before illness onset No symptoms or risks identified at this time. - Social history:: Smoking status: Patient/guardian denies using tobacco. ROS: 08:36 Constitutional: Negative for fever, chills, and weight loss, Eyes: Negative for injury, kdr pain, redness, and discharge, ENT: Negative for injury, pain, and discharge, Neck: Negative for injury, pain, and swelling, Cardiovascular: Negative for chest pain, palpitations, and edema, Respiratory: Negative for shortness of breath, cough, wheezing, and pleuritic chest pain, Abdomen/GI: Negative for abdominal pain, nausea, vomiting, diarrhea, and constipation, Back: Negative for injury and pain, : Negative for injury, bleeding, discharge, and swelling, MS/Extremity: Negative for injury and deformity, Skin: Negative for injury, rash, and discoloration, Psych: Negative for depression, anxiety, suicide ideation, homicidal ideation, and hallucinations, Allergy/Immunology: Negative for hives, rash, and allergies, Endocrine: Negative for neck swelling, polydipsia, polyuria, polyphagia, and marked weight changes, Hematologic/Lymphatic: Negative for swollen nodes, abnormal bleeding, and unusual bruising. 08:36 Neuro: Positive for headache, visual changes, Negative for altered mental status, dizziness, gait disturbance, hearing loss, numbness, seizure activity, speech changes, tingling, tinnitus, tremor. Exam: 08:36 Constitutional: This is a well developed, well nourished patient who is awake, alert, kdr and in no acute distress. Head/Face: Normocephalic, atraumatic. Eyes: Pupils equal round and reactive to light, extra-ocular motions intact. Lids and lashes normal. Conjunctiva and sclera are non-icteric and not injected. Cornea within normal limits. Periorbital areas with no swelling, redness, or edema. Neck: Trachea midline, no thyromegaly or masses palpated, and no cervical lymphadenopathy. Supple, full range of motion without nuchal rigidity, or vertebral point tenderness. No Meningismus. Chest/axilla: Normal chest wall appearance and motion. Nontender with no deformity. No lesions are appreciated. Cardiovascular: Regular rate and rhythm with a normal S1 and S2. No gallops, murmurs, or rubs. Normal PMI, no JVD. No pulse deficits. Respiratory: Lungs have equal breath sounds bilaterally, clear to auscultation and percussion. No rales, rhonchi or wheezes noted. No increased work of breathing, no retractions or nasal flaring. Abdomen/GI: Soft, non-tender, with normal bowel sounds. No distension or tympany. No guarding or rebound. No evidence of tenderness throughout. Back: No spinal tenderness. No costovertebral tenderness. Full range of motion. Skin: Warm, dry with normal turgor. Normal color with no rashes, no lesions, and no evidence of cellulitis. MS/ Extremity: Pulses equal, no cyanosis. Neurovascular intact. Full, normal range of motion. Neuro: Awake and alert, GCS 15, oriented to person, place, time, and situation. Cranial nerves II-XII grossly intact. Motor strength 5/5 in all extremities. Sensory grossly intact. Cerebellar exam normal. Normal gait. Psych: Awake, alert, with orientation to person, place and time. Behavior, mood, and affect are within normal limits. 08:36 Neck: ROM/movement: is normal, no acute changes. Vital Signs: 07:50 BP 119 / 84; Pulse 58; Resp 16 S; Temp 98.5(O); Pulse Ox 98% on R/A; Weight 64.86 kg; iw Height 5 ft. 8 in. (172.72 cm); Pain 0/10; 09:00 BP 113 / 71; Pulse 52; Resp 16; Pulse Ox 99% on R/A; Pain 0/10; em 11:09 BP 113 / 67; Pulse 51; Resp 16; Pulse Ox 97% on R/A; em 11:26 BP 103 / 66 LA Supine (auto/reg); Pulse 70 MON; em1 11:28 BP 123 / 93 LA Sitting (auto/reg); Pulse 73 MON; em1 11:30 BP 122 / 93 LA Standing (auto/reg); Pulse 83 MON; em1 12:30 BP 107 / 70; Pulse 55; Resp 18; Pulse Ox 99% on R/A; Pain 0/10; em 07:50 Body Mass Index 21.74 (64.86 kg, 172.72 cm) iw MDM: 08:36 Data reviewed: vital signs, nurses notes, lab test result(s), radiologic studies. kdr 11:58 Patient medically screened. [facility] 11/19 08:35 Order name: CBC with Diff kdr 11/19 08:35 Order name: Chem 7; Complete Time: 11:37 kdr 11/19 08:30 Order name: Stroke Protocol; Complete Time: 11:37 EDIA 11/19 08:36 Order name: CBC with Automated Diff; Complete Time: 11:37 EDIA 11/19 11:19 Order name: Orthostatics; Complete Time: 11:34 em Administered Medications: 12:49 Drug: TORadol 30 mg Route: IVP; Site: right antecubital; iw 13:00 Follow up: Response: No adverse reaction em Disposition: 11/19/17 11:58 Discharged to Home. Impression: Headache, Weakness. - Condition is Stable. - Discharge Instructions: General Headache Without Cause, Weakness, [id number]. - Prescriptions for Fioricet 50- 325-40 mg Oral tablet - take 2 tablet by ORAL route every 4 hours As needed as needed not to exceed 6 tablets per 24hrs; 16 tablet. Topamax 25 mg Oral capsule, sprinkle - take 1 capsule by ORAL route Every night; 30 capsule. - Medication Reconciliation Form, Thank You Letter form. - Follow up: Hermes Cox MD; When: 2 - 3 days; Reason: If symptoms return, Further diagnostic work-up, Recheck today's complaints, Continuance of care, Re-evaluation by your physician. - Problem is an ongoing problem. - Symptoms have improved. - Notes: You maytake Excedrine over the counter as needed for the headache. You can alos try caffinated beverages as well. Keep well hydrated Signatures: Dispatcher [employer] [facility] Darshan Ackerman MD MD [facility] Sujata Adrian, FIRE DEPARTMENT BATTALION CHIEF-C FIRE DEPARTMENT BATTALION CHIEF-[employer] Amando Coyle, CABLE FERRYBOAT OPERATOR CABLE FERRYBOAT OPERATOR em Mikaela Plummer, RN RN iw Corrections: (The following items were deleted from the chart) 13:38 11:58 11/19/2017 11:58 Discharged to Home. Impression: Headache; Weakness. Condition is em Stable. Forms are Medication Reconciliation Form, Thank You Letter, Antibiotic Education, Prescription Opioid Use. Follow up: Hermes Cox; When: 2 - 3 days; Reason: If symptoms return, Further diagnostic work-up, Recheck today's complaints, Continuance of care, Re-evaluation by your physician. Problem is an ongoing problem. Symptoms have improved. kdr
[2017-11-19] MEDS ORDERED: KETOROLAC 30 MG/ML INJ ONE (12:42)
[2017-11-19 13:42] VITALS: TEMP 98.5
[2017-11-19 13:48] VITALS: BP 107/70; O2SAT 99
== END 2017-11-19 13:38 | disposition home or self-care (01) ==
LOC: ER 07:32
DX: R51 Headache (principal); R53.1 Weakness; E78.5 Hyperlipidemia, unspecified
CPT/HCPCS: 36415; 70544; 70549; 70553; 80048; 85025; 96374; 99284; A9577

== ENCOUNTER 2017-11-23 02:48 | Emergency (ER) | payer SELFPAY ==
[2017-11-23] MEDS ORDERED: KETOROLAC 30 MG/ML INJ ONE (03:53)
[2017-11-23] MEDS ORDERED: DIPHENHYDRAMINE 50 MG/ML VIAL ONE (03:53)
[2017-11-23] MEDS ORDERED: ONDANSETRON 4 MG/2 ML VIAL ONE (03:53)
--- NOTE | 2017-11-23 04:39 | ER ---
Nurse's Notes [facility] Name: Jonathon Croft Age: 52 yrs Sex: Male : 1965 Arrival Date: 11/23/2017 Time: 02:50 Bed 18 Private MD: Diagnosis: Headache Presentation: 11/23 03:00 Presenting complaint: Patient states: he got very overheated at work 9 days ago and has aa1 been having migraines ever since. States he was seen here after the incident occurred initially and was given fiorcet and topamax but they aren't helping. Transition of care: patient was not received from another setting of care. Onset of symptoms was November 13, 2017. Risk Assessment: Do you want to hurt yourself or someone else? Patient reports no desire to harm self or others. Initial Sepsis Screen: Does the patient meet any 2 criteria? No. Patient's initial sepsis screen is negative. Does the patient have a suspected source of infection? No. Patient's initial sepsis screen is negative. Care prior to arrival: None. 03:00 Method Of Arrival: Ambulatory aa1 03:00 Acuity: SANDRA 3 aa1 Triage Assessment: 03:44 Pain: Also complains of photophobia, inability to work, sleeplessness, inability to eb1 concentrate. 03:45 Headache History: Other headaches started 2 weeks ago. Have been constant since. eb1 Historical: - Allergies: 03:03 NKA; aa1 - Home Meds: 03:03 Fioricet Oral [Active]; Topamax Oral [Active]; aa1 - PMHx: 03:03 Hyperlipidemia; aa1 - PSHx: 03:03 None; aa1 - Immunization history:: Last tetanus immunization: up to date. - Social history:: Smoking status: Patient/guardian denies using tobacco. - Ebola Screening: : No symptoms or risks identified at this time. Screenin:44 Abuse screen: Denies threats or abuse. Denies injuries from another. Nutritional eb1 screening: No deficits noted. Tuberculosis screening: No symptoms or risk factors identified. Fall Risk None identified. Assessment: 03:37 General: Appears in no apparent distress. uncomfortable, well groomed, well developed, eb1 well nourished, Behavior is calm, cooperative, appropriate for age. Pain: Complains of pain in forehead, right eye, left eye, right druze and left druze Pain currently is 10 out of 10 on a pain scale. Quality of pain is described as heavy, pressure, Pain began patient states the symptoms began 2 weeks ago when he experienced heat exhaustion. Neuro: No deficits noted. Level of Consciousness is awake, alert, obeys commands, Oriented to person, place, time. Cardiovascular: No deficits noted. Heart tones present Capillary refill < 3 seconds Pulses are all present. Respiratory: No deficits noted. Airway is patent Breath sounds are clear. GI: No signs and/or symptoms were reported involving the gastrointestinal system. : No signs and/or symptoms were reported regarding the genitourinary system. EENT: No signs and/or symptoms were reported regarding the EENT system. Derm: No signs and/or symptoms reported regarding the dermatologic system. 04:39 Reassessment: Patient and/or family updated on plan of care and expected duration. Pain eb1 level reassessed. Patient states symptoms have improved. Vital Signs: 03:03 BP 131 / 98; Pulse 70; Resp 20; Temp 99.3; Pulse Ox 98% on R/A; Weight 65.77 kg; Height aa1 5 ft. 8 in. (172.72 cm); Pain 10/10; 04:00 BP 132 / 102; Pulse 67; Resp 20; Pulse Ox 98% on R/A; eb1 04:40 Pain 6/10; eb1 05:15 BP 112 / 64; Pulse 67; Resp 20; Temp 98.3; Pulse Ox 97% ; Pain 7/10; eb1 03:03 Body Mass Index 22.05 (65.77 kg, 172.72 cm) aa1 Emilia Coma Score: 04:38 Eye Response: spontaneous(4). Verbal Response: oriented(5). Motor Response: obeys tw4 commands(6). Total: 15. ED Course: 02:50 Patient arrived in ED. es 02:58 Jeanmarie Frost MD is Attending Physician. tw4 03:02 Triage completed. aa1 03:03 Arm band placed on right wrist. Patient placed in an exam room, on a stretcher. aa1 03:44 Bed in low position. Call light in reach. Side rails up X 1. eb1 03:44 No provider procedures requiring assistance completed. eb1 05:42 IV discontinued, intact, bleeding controlled, No redness/swelling at site. Pressure eb1 dressing applied. Administered Medications: 04:10 Drug: TORadol 30 mg Route: IVP; Site: left antecubital; eb1 04:40 Follow up: Pain 6/10 Adult; Response: Marked relief of symptoms eb1 04:10 Drug: Zofran 4 mg Route: IVP; Site: left antecubital; eb1 04:40 Follow up: Response: Marked relief of symptoms eb1 04:10 Drug: Benadryl 25 mg Route: IVP; Site: left antecubital; eb1 04:40 Follow up: Response: Marked relief of symptoms eb1 Outcome: 03:44 Condition: good eb1 04:39 Discharge ordered by . tw4 05:42 Discharged to home ambulatory, with family. eb1 05:42 Condition: good 05:42 Discharge instructions given to patient. 05:43 Patient left the ED. eb1 Signatures: Jacquelyn Alexander RN RN aa1 Mackenzie Max Terrence, MD MD tw4 Marlene Alcocer RN RN eb1 Corrections: (The following items were deleted from the chart) 04:41 04:00 BP 132 / 98; Pulse 67bpm; Resp 20bpm; Pulse Ox 98% RA; eb1 eb1
--- NOTE | 2017-11-23 04:39 | EDPHYS ---
Physician Documentation [facility] Name: Jonathon Croft Age: 52 yrs Sex: Male : 1965 Arrival Date: 11/23/2017 Time: 02:50 Bed 18 Private MD: ED Physician Jeanmarie Frost HPI: 11/23 02:58 This 52 yrs old Male presents to ER via Unassigned with complaints of tw4 Headache. 02:58 The patient complains of pain to the forehead. The patient describes the headache as tw4 aching, constant. Onset: The symptoms/episode began/occurred 1 week(s) ago. Associated signs and symptoms: The patient has no apparent associated signs or symptoms. Severity of symptoms: At its worst the pain was moderate, in the emergency department the pain is unchanged. The symptoms are alleviated by nothing. the symptoms are aggravated by lights, movement, noise, stress. The patient has experienced a previous episode. The patient has been recently seen at the [facility] Emergency Department. Historical: - Allergies: 03:03 NKA; aa1 - Home Meds: 03:03 Fioricet Oral [Active]; Topamax Oral [Active]; aa1 - PMHx: 03:03 Hyperlipidemia; aa1 - PSHx: 03:03 None; aa1 - Immunization history:: Last tetanus immunization: up to date. - Social history:: Smoking status: Patient/guardian denies using tobacco. - Ebola Screening: : No symptoms or risks identified at this time. ROS: 02:58 Constitutional: Negative for fever, chills, and weight loss, Cardiovascular: Negative tw4 for chest pain, palpitations, and edema, Respiratory: Negative for shortness of breath, cough, wheezing, and pleuritic chest pain, Abdomen/GI: Negative for abdominal pain, nausea, vomiting, diarrhea, and constipation, Back: Negative for injury and pain. 02:58 Neuro: Positive for headache, Negative for altered mental status, dizziness, gait disturbance, numbness, seizure activity, speech changes, syncope, near syncope, tinnitus, tremor, visual changes, weakness. Exam: 02:58 Constitutional: This is a well developed, well nourished patient who is awake, alert, tw4 and in no acute distress. Chest/axilla: Normal chest wall appearance and motion. Nontender with no deformity. No lesions are appreciated. Cardiovascular: Regular rate and rhythm with a normal S1 and S2. No gallops, murmurs, or rubs. Normal PMI, no JVD. No pulse deficits. Respiratory: Lungs have equal breath sounds bilaterally, clear to auscultation and percussion. No rales, rhonchi or wheezes noted. No increased work of breathing, no retractions or nasal flaring. Abdomen/GI: Soft, non-tender, with normal bowel sounds. No distension or tympany. No guarding or rebound. No evidence of tenderness throughout. Vital Signs: 03:03 BP 131 / 98; Pulse 70; Resp 20; Temp 99.3; Pulse Ox 98% on R/A; Weight 65.77 kg; Height aa1 5 ft. 8 in. (172.72 cm); Pain 10/10; 04:00 BP 132 / 102; Pulse 67; Resp 20; Pulse Ox 98% on R/A; eb1 04:40 Pain 6/10; eb1 05:15 BP 112 / 64; Pulse 67; Resp 20; Temp 98.3; Pulse Ox 97% ; Pain 7/10; eb1 03:03 Body Mass Index 22.05 (65.77 kg, 172.72 cm) aa1 Emilia Coma Score: 04:38 Eye Response: spontaneous(4). Verbal Response: oriented(5). Motor Response: obeys tw4 commands(6). Total: 15. MDM: 02:58 Patient medically screened. tw4 04:38 Data reviewed: vital signs, nurses notes. Counseling: I had a detailed discussion with tw4 the patient and/or guardian regarding: the historical points, exam findings, and any diagnostic results supporting the discharge/admit diagnosis. Special discussion: Based on the patient's history, exam and DX evaluation, there is no indication for emergent intervention or inpatient TX. It is understood by the patient/guardian that if the SXs persist or worsen they need to return immediately for re-evaluation. ED course: . ED course: Pt states that his symptoms have improved. Administered Medications: 04:10 Drug: TORadol 30 mg Route: IVP; Site: left antecubital; eb1 04:40 Follow up: Pain 6/10 Adult; Response: Marked relief of symptoms eb1 04:10 Drug: Zofran 4 mg Route: IVP; Site: left antecubital; eb1 04:40 Follow up: Response: Marked relief of symptoms eb1 04:10 Drug: Benadryl 25 mg Route: IVP; Site: left antecubital; eb1 04:40 Follow up: Response: Marked relief of symptoms eb1 Disposition: 11/23/17 04:39 Discharged to Home. Impression: Headache. - Condition is Stable. - Discharge Instructions: General Headache Without Cause, Migraine Headache. - Prescriptions for Fiorinal 50- 325-40 mg Oral Capsule - take 1 capsule by ORAL route every 4 hours As needed - not to exceed 6 capsules per day; 20 capsule. - Medication Reconciliation Form, Thank You Letter, Antibiotic Education, Prescription Opioid Use form. - Follow up: Private Physician; When: As needed; Reason: Recheck today's complaints, Continuance of care, Re-evaluation by your physician. - Problem is new. - Symptoms have improved. Signatures: Jacquelyn Alexander RN RN aa1 Jeanmarie Frost MD MD tw4 Marlene Alcocer RN RN eb1 Corrections: (The following items were deleted from the chart) 05:43 04:39 11/23/2017 04:39 Discharged to Home. Impression: Headache. Condition is Stable. eb1 Forms are Medication Reconciliation Form, Thank You Letter, Antibiotic Education, Prescription Opioid Use. Follow up: Private Physician; When: As needed; Reason: Recheck today's complaints, Continuance of care, Re-evaluation by your physician. Problem is new. Symptoms have improved. tw4
[2017-11-23 05:50] VITALS: BP 112/64; TEMP 98.3; O2SAT 97
== END 2017-11-23 05:43 | disposition home or self-care (01) ==
LOC: ER 02:48
DX: R51 Headache (principal); E78.5 Hyperlipidemia, unspecified
CPT/HCPCS: 96374; 96375; 99283; J2405